=== PATIENT | female | born 1955 | race Caucasian/White ===

== ENCOUNTER 2016-05-25 12:41 | Outpatient (CLI) | payer OTHER ==
--- NOTE | 2016-05-25 13:54 | DIAGNOSTIC IMAGING REPORT ---
PROCEDURE: DEXA BONE DENSITY STUDY CLINICAL INDICATION: Postmenopausal, screening, current vitamin D and calcium supplementation. COMPARISON: None. FINDINGS: LUMBAR SPINE: Bone mineral density 0.764 g/cm2, T score -2.6, osteoporosis . LEFT HIP: Bone mineral density 0.862 g/cm2, T score -0.7, normal . LEFT FEMORAL NECK: Bone mineral density 0.538 g/cm2, T score -2.8, osteoporosis . FRACTURE RISK CALCULATION ( when applicable): Not calculated given some T scores below -2.5 (T score greater or equal to -1.0 to: NORMAL) (T score from -1.1 to -2.4: OSTEOPENIA) (T score ess than or equal to -2.5: OSTEOPOROSIS) IMPRESSION: 1. Osteoporosis in the lumbar spine and left femoral neck puts the patient at a high risk of fracture.
--- NOTE | 2016-05-25 14:11 | DIAGNOSTIC IMAGING REPORT ---
PROCEDURE: XR HAND 3 OR 4 VIEWS BILATERAL INDICATION: FINGER PAIN TECHNIQUE: Four views of each hand. COMPARISON: None. FINDINGS: RIGHT HAND: There is osteoarthritis involving the DIP joints of digits two through five. LEFT HAND: There is osteoarthritis involving the DIP joints of digits two through five. IMPRESSION: 1. 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
--- NOTE | 2016-05-25 15:16 | DIAGNOSTIC IMAGING REPORT ---
PROCEDURE: MG BILATERAL SCREENING W/CAD INDICATION: SCREENING. Aunt with a history of breast cancer. TECHNIQUE: Bilateral CC and MLO digital views. COMPARISON: 04/09/2015, 01/10/2014 and 08/02/2012. FINDINGS: Computer-aided detection applied. Mildly dense and nodular pattern. Occasional dystrophic calcifications. No change. IMPRESSION: 1. Negative mammogram RESULT CODE: 1- Negative. A. A negative report should not delay biopsy if a dominant or clinically suspicious mass is present. 10-15% of cancers are not identified by x-ray. B. A negative report may reinforce clinical impression. C. Adenosis and dense breasts may obscure an underlying neoplasm. D. False positive reports average 6-10%. E.. A yearly screening mammogram is recommended. A reminder letter will be scheduled.
== END 2016-05-25 23:00 ==
LOC: XR SRH 12:41
DX: Z12.31 Encounter for screening mammogram for malignant neoplasm of breast (principal); Z13.820 Encounter for screening for osteoporosis; Z80.3 Family history of malignant neoplasm of breast; M81.0 Age-related osteoporosis without current pathological fracture; M19.042 Primary osteoarthritis, left hand; M19.041 Primary osteoarthritis, right hand; M79.646 Pain in unspecified finger(s)